=== PATIENT | female | born 1970 | race Caucasian/White ===

== ENCOUNTER 2016-07-15 07:23 | Inpatient (IN) | payer OTHER ==
[2016-07-15] VITALS (16 sets, daily range): BP systolic 119–180; BP diastolic 59–98; PULSE 70–85; RESP 12–20; Ht 170.2 cm; Wt 90.0 kg
[~2016-07-15] VITALS: Ht 170.2 cm; Wt 90.0 kg
[~2016-07-15 07:23] MED LIST: CIPR500T4 PO
--- NOTE | 2016-07-15 10:35 | HPN ---
Date/Time of Note Date/Time of Note DATE: 07/15/16 TIME: 10:34 Interval H&P Admission Note Pt. seen H&P reviewed: No system changes KARIN GIRALDO MD Jul 15, 2016 10:34
[2016-07-15] MEDS ORDERED: PROPOFOL 20 ML ONE ×2 (10:41→12:00)
[2016-07-15] MEDS ORDERED: ROPIVACAINE 0.5 % 30 ML VIAL ONE ×2 (10:41→10:51)
[2016-07-15] MEDS ORDERED: LIDOCAINE 2% (SDV) 5 ML INJ ONE (10:41)
[2016-07-15] MEDS ORDERED: MIDAZOLAM 1 MG/ML 2 ML INJ ONE ×2 (10:41→12:39)
[2016-07-15] MEDS ORDERED: POVIDONE IODINE 10% 28.4 GM OINT ONE (10:51)
[2016-07-15] MEDS ORDERED: THROMBIN 5000 UNIT VIAL ONE (10:51)
[2016-07-15] MEDS ORDERED: GELATIN SIZE 100 SPONGE ONE (10:51)
[2016-07-15] MEDS ORDERED: CEFAZOLIN 1 GM INJ IV SCH (11:00)
[2016-07-15] MEDS: CEFAZOLIN 1 GM/50 ML (PMX) 50 ML IVPB SCH ×2 (11:00→19:40)
[2016-07-15] MEDS ORDERED: HYDROmorphONE 0.2 MG/ML PCA IV SCH (11:00)
[2016-07-15] MEDS ORDERED: BISACODYL 10 MG SUPP PR PRN (11:00)
[2016-07-15] MEDS ORDERED: ONDANSETRON 4 MG INJ IV PRN ×2 (11:00→14:30)
[2016-07-15] MEDS ORDERED: OXYCODONE/ACETAMINOPHEN (5/325) TAB PO PRN (11:00)
[2016-07-15] MEDS ORDERED: DIPHENHYDRAMINE 25 MG CAP PO PRN (11:00)
[2016-07-15] MEDS ORDERED: morphine 10 MG INJ IV PRN (11:00)
[2016-07-15] MEDS ORDERED: FENTAnyl 50 MCG/ML VIAL ONE (11:08)
[2016-07-15] MEDS ORDERED: CEFAZOLIN 1 GM INJ ONE ×2 (11:20→11:22)
[2016-07-15] MEDS ORDERED: ONDANSETRON 4 MG INJ ONE (11:31)
[2016-07-15] MEDS ORDERED: METOCLOPRAMIDE 10 MG INJ ONE (11:31)
[2016-07-15] MEDS ORDERED: FAMOTIDINE 20 MG INJ ONE (11:31)
[2016-07-15] MEDS ORDERED: DEXAMETHASONE 4 MG/ML 1 ML INJ ONE (11:31)
[2016-07-15] MEDS ORDERED: HYDROmorphONE 2 MG/ML SYG ONE (11:46)
[2016-07-15] MEDS ORDERED: THROMBIN 5000 UNIT VIAL TOP ONE (12:16)
[2016-07-15] MEDS ORDERED: POLYMYXIN/BACITRACIN 1L IRRIG IRR ONE (12:35)
[2016-07-15] MEDS ORDERED: NEOSTIGMINE 3 MG/3 ML SYRINGE ONE ×2 (13:46→13:54)
[2016-07-15] MEDS ORDERED: ROCURONIUM 50 MG INJ ONE ×2 (13:46)
[2016-07-15] MEDS ORDERED: GLYCOPYRROLATE 0.4 MG INJ ONE (13:46)
[2016-07-15] MEDS ORDERED: FENTAnyl 50 MCG/ML VIAL IV PRN ×3 (14:30)
[2016-07-15] MEDS ORDERED: MEPERIDINE 25 MG INJ IV PRN (14:30)
[2016-07-15] MEDS ORDERED: HYDROmorphONE (0.2 MG/ML) 10ML SYG IV PRN ×3 (14:30)
[2016-07-15] MEDS ORDERED: PROCHLORPERAZINE 10 MG INJ IV PRN (14:30)
[2016-07-15] MEDS ORDERED: DIPHENHYDRAMINE 50 MG INJ IV PRN (14:30)
--- NOTE | 2016-07-15 17:36 | RADRPT ---
PROCEDURE: Intraoperative imaging of the right ankle with fluoroscopy. CLINICAL INDICATION: Right ankle pain. Intraoperative. TECHNIQUE: 2 images of the right ankle were obtained in the operating room with an image intensifi er. No radiologist was in attendance. 0.3 minutes of fluoroscopy time was used. COMPARISON: 11/22/2011. FINDINGS: Images demonstrate fusion of the subtalar joint with 2 large screws entering via the calcaneus. IMPRESSION: 1. Intraoperative imaging of the right ankle. RPTAT: QQ .David Frazier MD, MD Date Time Electronically viewed and signed by .David Frazier MD, MD on 07/15/2016 17:36 .R/
[2016-07-15] MEDS: SOD CHLORIDE 0.9% 1,000 ML IV SCH ×2 (19:40→20:35)
[2016-07-15] MEDS: SENNA/DOCUSATE NA (8.6MG/50MG) TAB PO SCH (20:25)
--- NOTE | 2016-07-15 21:50 | OPR ---
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 OPERATION PERFORMED: 1. Right subtalar arthrodesis. 2. Insertion of iliac crest bone graft and Ignite into the arthrodesis site. 3. Insertion of two 7.3 AO cannulated screws across the arthrodesis site to stabilize the fusion. 4. Use of fluoroscopy to verify position and alignment of the guide pins. 5. Short-leg cast. SURGEON: Karin Shepard MD SALES REPRESENTATIVE PRINTING: Sherita Wilkinson. ANESTHESIA: General with popliteal block. TOURNIQUET TIME: 90 minutes. DESCRIPTION OF PROCEDURE: The patient taken to the operating room and placed in supine position. S atisfactory popliteal block was given. Satisfactory general anesthesia administered. Ancef 2 grams given intravenously. The right leg was prepped and draped in the usual manner from the iliac crest to the toes. Sterile tourniquet was applied. Attention was turned to the iliac crest. Incision was made over the iliac crest. Dissection carried down to subcutaneous tissue to the fasci a. Fascia was split and peeled off the inner and outer tables. Using a saw, 2 vertical cuts and 1 horizontal cut were made to window open the top of the iliac crest. Bone graft was then removed wit h different angled curettes as well as some bone marrow aspirate. When adequate amount had been obt ained, the area was packed with thrombin-soaked Gelfoam and covered sterilely. Gloves were changed. All new instruments were used. Tourniquet was inflated to 275 mmHg. Incision was made from the tip of the fibula towards the fourth metatarsal. Dissection carried down to subc utaneous tissue. Extreme care was taken to protect the peroneal tendons. We went into the area of the subtalar joint. We freed it up and freed up the sinus tarsi. There was significant degenerativ e joint disease in the subtalar joint. A laminar supply chain systems manager was used to spread the joint. Using diff erent angled osteotomes and curettes, all the articular cartilage was removed from the talus and the calcaneus. The sinus tarsus was cleaned and all soft tissue was removed as well. A bur was then u sed to remove no more than 1 mm of bone from the talus and calcaneus to get good bleeding bone. Mul tiple "spot welds" were made to facilitate healing. Multiple drill holes were made with 0.045 K-wir e. Multiple holes were made with an osteotome to shingle both areas to facilitate healing. Incision was then made medial to the anterior tibial tendon, dissection carried down to subcutaneous tissue. The capsule was opened over the fused ankle joint and talar neck. The fluoroscope was bro ught in. The Vector drill guide was inserted and guide pin was placed across the arthrodesis site. We measured the length and then drilled it retrograde and inserted the screw retrograde. Excellent fixation was obtained. Excellent position of the screw was noted on the fluoroscope. Second guide pin was placed parallel and more anterior to the first. Its length was checked and partially drill ed and then the screw inserted. Both guide pins were removed. Final fluoroscopic view showed good position and alignment of the screws with good compression across the subtalar joint. It should be noted that prior to inserting the guide pins and screws across the subtalar joint, iliac crest bone graft was inserted and Ignite was mixed with the patient's blood drawn sterilely and inserted in the arthrodesis site as well. Once it was adequately packed, then the guide pin and screws were placed and the joint compressed. The wounds were irrigated with antibiotic solution. The medial wound wa s closed in the capsule with 2-0 undyed Vicryl, subcutaneous was closed with 3-0 undyed Vicryl and s kin with 4-0 black nylon. Additional Ignite was placed along the arthrodesis site in the subtalar j oint and then irrigated carefully. The deep tissues were closed with 2-0 undyed Vicryl, the skin wi th 4-0 black nylon. A compression dressing was applied sterilely with the foot in neutral position. A short-leg cast was then applied in neutral position. The iliac crest was closed first by removing all the thrombin-soaked Gelfoam, irrigating extensively with antibiotic solution. The fascia was closed with a running 0 PDS, subcutaneous tissue closed w ith 2-0 and 3-0 undyed Vicryl, and the skin with 3-0 running subcuticular Prolene. Steri-Strips wer e applied as well as compression dressing. At the end of procedure, sponge and needle count was cor rect. The patient tolerated procedure well. The cast was split in the recovery room. AWNING FINISHER ORTHOPEDIC SURGEON: During the procedure, an head start assistant teacher orthopedic surgeon was used at my request. The head start assistant teacher helped with exposure of the iliac crest and obtaining the bone graft. The a ssistant also helped with exposure of the subtalar joint. In addition, the head start assistant teacher drilled the gu caro pins and assisted in screw insertion while I held the subtalar joint reduced. Without a skilled orthopedic surgeon assisting me, this could not have been done; therefore, should be compensated ap propriately. Dictated By: KARIN ADAME/CARIN Conf#: [id number] DID#: [id number]
[2016-07-16] VITALS: BP 134/73; RESP 16
[2016-07-16] MEDS: CEFAZOLIN 1 GM/50 ML (PMX) 50 ML IVPB SCH ×2 (03:16→11:05)
[2016-07-16] MEDS: SOD CHLORIDE 0.9% 1,000 ML IV SCH ×2 (06:52→15:35)
--- NOTE | 2016-07-16 06:58 | PN ---
Date/Time of Note Date/Time of Note DATE: 07/16/16 TIME: 06:55 Assessment/Plan VTE Prophylaxis VTE Prophylaxis Intervention: ambulation, other (Xarelto) Lines/Catheters IV Catheter Type (from Nrsg): Peripheral IV Assessment/Plan Chief Complaint/Hosp Course POD#1 s/p right subtalar fusion with iliac crest bone graft from right hip. Problems: Assessment/Plan 1. Pain control: D/c SALES ATTENDANT and transition to PO pain medications 2. PT/OT: NWB RLE, encourage out of bed. 3. DVT PPX: Xarelto and ambulation 4. Discharge: Pending PT clearance and pain control. Home today if parameters met. 5. F/u with Dr. Giraldo in ~1 week as scheduled. Subjective 24 Hr Interval Summary Subjective hx not possible: other (no acute issues overnight. pain well controlled. ) Exam/Review of Systems Vital Signs Vitals Vital Signs Date Time Temp Pulse Resp B/P Pulse Ox O2 Delivery O2 Flow Rate FiO2 07/16/16 01:00 16 07/16/16 00:00 98.5 104 134/73 99 07/15/16 20:10 Nasal Cannula 2.0 Intake and Output 07/15/16 07/15/16 07/16/16 15:00 23:00 07:00 Intake Total 1200 ml Output Total 10 ml 800 ml Balance 1190 ml -800 ml Exam Constitutional: alert, oriented Psych: no complaints Musculoskeletal: other (RLE with cast in place, cast C/D/I. Able to wiggle toes. Brisk capillary refill. Leg elevated. Sensation grossly intact over toes. ) Medications Medications Current Medications Senna/Docusate Sodium (Senokot-S) 1 tab BID PO Last administered on 07/15/16 20:25; Admin Dose 1 TAB; Start 07/15/16 at 21:00 Magnesium Hydroxide (Milk Of Mag) 30 ml HS PO ; Start 07/17/16 at 21:00 Bisacodyl 10 mg 10 mg DAILY PRN ID CONSTIPATION; Start 07/15/16 at 11:00 Sodium Chloride (NS) 1,000 ml @ 100 mls/hr Q10H IV Last administered on 06:52; Admin Dose 100 MLS/HR; Start 07/15/16 at 10:35 Oxycodone/ Acetaminophen (Percocet (5/ 325)) 2 tab Q4H PRN PO MODERATE PAIN 5-7 ; Start 07/15/16 at 11:00 Morphine Sulfate (morphine) 5 mg Q4H PRN IV PAIN LEVEL 7-10; Start 07/15/16 at 11:00 Ondansetron HCl (Zofran Inj) 4 mg Q4H PRN IV NAUSEA AND/OR VOMITING; Start at 11:00 Diphenhydramine HCl (Benadryl) 25 mg Q4H PRN PO ITCHING; Start 07/15/16 at 11: 00 Hydromorphone HCl MG/HR CONTINUOUS RATE ... Q4PCA IV Last administered on 14:56; Admin Dose 6 MG; Start 07/15/16 at 11:00 Cefazolin Sodium (Ancef 1 Gm/50 ml (Pmx)) 50 ml @ 100 mls/hr Q8H IVPB Last administered on 07/16/16 03:16; Admin Dose 100 MLS/HR; Start 07/15/16 at 11:00 ; Stop 07/17/16 at 11:29 KARIN GIRALDO MD Jul 16, 2016 06:57
[2016-07-16 07:00] VITALS: BP 98/57; RESP 20
[2016-07-16 07:56] VITALS: BP 121/75; RESP 19
[2016-07-16] MEDS: SENNA/DOCUSATE NA (8.6MG/50MG) TAB PO SCH (08:57)
[2016-07-16] MEDS ORDERED: RIVAROXABAN 10 MG TABLET PO SCH (17:55)
--- NOTE | 2016-07-17 04:59 | DS ---
DATE OF ADMISSION: 07/15/2016 DATE OF DISCHARGE: 07/16/2016 DISCHARGE DIAGNOSIS: Severe degenerative joint disease, right subtalar joint. SURGERY: On 07/15/2016, right subtalar fusion with iliac crest bone graft and screws. HISTORY OF PRESENT ILLNESS: The patient is a 45-year-old female with a long history of injury to th e area of her calcaneus and subtalar joint. She has developed posttraumatic arthritis, admitted now for fusion. PAST MEDICAL HISTORY: See history and physical record. PHYSICAL EXAMINATION: Normal except the orthopedic exam which revealed pain about the subtalar join t with decreased range of motion and strength. DATA: Laboratory was normal. Chest x-ray was clear. EKG was stable. HOSPITAL COURSE: The patient was taken to the operating room and underwent above-mentioned procedur e. Postoperatively, she was up ambulating on the first postoperative day. She will be discharged o n pain medication, blood thinner, Xarelto, and antibiotics, to be followed in the office in 1 week. Dictated By: KARIN ADAME/CARIN Conf#: [id number] DID#: [id number]
[2016-07-17] MEDS ORDERED: MAGNESIUM HYDROXIDE 30ML CUP PO SCH (21:00)
== END 2016-07-16 14:00 | disposition home or self-care (01) | DRG 494 ==
LOC: SDS 07:23 → MS1 10:37
PROVIDERS: ADMIT Orthopaedic Surgery; ATTEND Orthopaedic Surgery
PROC: 0SGF07Z Fusion of Right Ankle Joint with Autologous Tissue Substitute, Open Approach (ICD-10-PCS; 2016-07-15)
PROC: 0QB20ZZ Excision of Right Pelvic Bone, Open Approach (ICD-10-PCS; 2016-07-15)
PROC: 0SGF04Z Fusion of Right Ankle Joint with Internal Fixation Device, Open Approach (ICD-10-PCS; principal; 2016-07-15 09:30)
DX: M19.071 Primary osteoarthritis, right ankle and foot (principal); Z79.02 Long term (current) use of antithrombotics/antiplatelets
CPT/HCPCS: 97116; 97162; 97530; C1713; J0690; J1100; J1170; J2175; J2250; J2405; J2710; J2765; J2795; J3010; J7030